=== PATIENT | female | born 1990 | race Caucasian/White ===

== ENCOUNTER 2020-06-06 09:44 | Emergency (ER) | payer OTHER, SELFPAY ==
[2020-06-06 10:08] VITALS: BP 116/68; PULSE 84; RESP 20; TEMP 36.6; O2SAT 99
[2020-06-06] MEDS: cefTRIAXone 250 MG VIAL IM (10:09)
--- NOTE | 2020-06-06 10:10 | ED.GENADULT ---
HPI - General Adult General Chief complaint: Unspecified Stated complaint: Stds Source: patient Mode of arrival: ambulatory Limitations: no limitations History of Present Illness HPI narrative: Patient presents this is a 29-year-old to the emergency department with a history of her arm boyfriend having STD symptoms and wanted to be evaluated as well. The boyfriend was assessed approximately 2 days ago, currently she is not having any symptoms there is no vaginal discharge no irritation, no dysuria no flank pain no fever or chills. Onset (ago): unknown Relieving factors: none Exacerbating factors: none Treatments prior to arrival: none Review of Systems Review of Systems: All systems reviewed & are unremarkable except as noted in HPI and below PMFSH Past Medical History Medical History Patient denies medical problems Social History Social History Gender identity (if verbalized by the patient): Female Exam Const: General: no acute distress and alert Orientation/consciousness: patient oriented x3 HENMT: Head: normal to inspection Eyes: Conjunctivae: conjunctivae normal Pupils: Equal, round and reactive pupils present Neck: Neck: normal visual inspection Chest: Chest palpation & inspection: normal inspection of the chest Resp: Effort & Inspection: normal respiratory effort Cardio: Rate: regular rate Rhythm: regular rhythm GI: GI Palp: Yes Soft to palpation : General: Yes no CVA tenderness Back/Spine/Pelvis: Back: no CVA tenderness Skin: General skin exam: normal color Rashes: no rashes Neuro: General: patient oriented x3 and moves all extremities Extrem: General: normal to inspection and no pedal edema Psych: Mental Status: mental status grossly normal Course Course Emergency Course: patient resting comfortably with no acute symptoms, receiving ceftriaxone along with some azithromycin. Critical Care Time Critical Care Time Critical Care Time: No Discharge Plan Discharge Clinical Impression: Exposure to STD Patient Disposition: Home, Self-Care Condition: Stable Instructions: Antibiotic Form, Safe Sex Practices (ED) Additional Instructions: follow-up with primary care physician if symptoms persist or worsen. Follow-up/Referrals: PHYSICIAN NOT ON STAFF,NONSTAFF [Primary Care Provider] - Time of Disposition: :13
[2020-06-06] MEDS: AZITHROMYCIN 250 MG TABLET 1000 MG PO (10:20)
--- NOTE | 2020-06-06 10:23 | PC.NURSE ---
[id number] Audie osorio MD aware of PCN allergy & approved, Given IM in left hip
[2020-06-06 10:33] VITALS: BP 111/80; PULSE 78; RESP 16; TEMP 36.6; O2SAT 96
[2020-06-06 11:37] LABS: HIV 1 P24 AG Negative (Negative); HIV 1/2 AB Negative (Negative)
[2020-06-11 18:05] LABS: RPR Screen Non-Reactive (Non-Reactive)
== END 2020-06-06 10:33 | disposition home or self-care (01) ==
PROVIDERS: Emergency Provider Emergency Medicine
DX: Z20.2 Contact with and (suspected) exposure to infections with a predominantly sexual mode of transmission (principal)
CPT/HCPCS: 36415; 86592; 86703; 87491; 87591; 96372; 99282; 99284; A9270; J0696